=== PATIENT | male | born 1945 | race Caucasian/White ===

== ENCOUNTER → 2020-08-22 | Outpatient (CLI) | payer MEDICARE | END | disposition home or self-care (01) | LOC: STAR 11:35 | PROVIDERS: ATTEND Internal Medicine Clinical Cardiac Electrophysiology | DX: Z20.828 Contact with and (suspected) exposure to other viral communicable diseases (principal) | CPT/HCPCS: 87635 ==

== ENCOUNTER 2020-08-27 10:57 | Observation (INO) | payer MEDICARE ==
[~2020-08-27] VITALS: Ht 177.8 cm; Wt 124.9 kg
[2020-08-27] MEDS ORDERED: CEFAZOLIN PMX 2GM/50ML 50 ML IVPB ONE (12:00)
[2020-08-27] MEDS ORDERED: SPIR25TA5 PO (12:10)
[2020-08-27] MEDS ORDERED: LISI40TA PO (12:10)
[2020-08-27] MEDS ORDERED: ATOR40TA78 PO (12:10)
[2020-08-27] MEDS ORDERED: CLOP75TA52 PO (12:10)
[2020-08-27] MEDS ORDERED: AMLO-150 PO (12:10)
[2020-08-27] MEDS ORDERED: CARV25TA12 PO (12:10)
[2020-08-27] MEDS ORDERED: FURO40TA6 PO (12:10)
[2020-08-27] MEDS ORDERED: FURO20TA3 PO (12:10)
[2020-08-27] MEDS ORDERED: ASPI81TA45 PO (12:10)
[2020-08-27 12:12] VITALS: BP 139/81
[2020-08-27 12:19] LABS: BASOPHILS % (AUTO) 1 % (0-1); EOSINOPHILS % (AUTO) 3 % (1-7); LYMPHOCYTES % (AUTO) 14 % (22-44); MEAN CORPUSCULAR HEMOGLOBIN 31.4 pg (27.5-34.5); MEAN CORPUSCULAR HGB CONC 34.4 g/dL (33.2-36.2); MEAN PLATELET VOLUME 6.3 fL (7.4-10.4); MONOCYTES % (AUTO) 7 % (2-9); NEUTROPHILS % (AUTO) 76 % (42-75); PLATELET COUNT 297 x10^3/uL (130-400); RED BLOOD COUNT 5.03 x10^6/uL (4.38-5.82)
[2020-08-27 12:20] LABS: MD NO
[2020-08-27 12:27] LABS: INTERNATIONAL NORMALIZED RATIO 1.04 (0.93-1.1)
[2020-08-27 12:30] LABS: ANION GAP 8 mmol/L (5-15); CALCIUM 9.6 mg/dL (8.5-10.1); CHLORIDE 98 mmol/L (98-107); CREATININE 0.74 mg/dL (0.7-1.3)
[2020-08-27] MEDS ORDERED: FENTANYL PF 250 MCG/5ML ONE (12:57)
[2020-08-27] MEDS ORDERED: MIDAZOLAM 1 MG/ML, 5ML ONE (13:16)
[2020-08-27] MEDS ORDERED: LIDOCAINE 2%, 20ML ONE (13:17)
[2020-08-27] MEDS ORDERED: CEFAZOLIN PMX 1GM/50ML 50 ML ONE (13:17)
[2020-08-27] MEDS ORDERED: CEFAZOLIN 1,000 MG ONE (13:17)
[2020-08-27] MEDS ORDERED: ONDANSETRON 2MG/ML, 2ML ONE (13:24)
[2020-08-27] MEDS ORDERED: SUCCINYLCHOLINE 20 MG/ML, 10ML ONE (13:24)
[2020-08-27] MEDS ORDERED: DEXAMETHASONE 4 MG/ML, 1ML ONE (13:24)
[2020-08-27] MEDS ORDERED: PROPOFOL 10 MG/ML, 20ML ONE (13:24)
[2020-08-27] MEDS ORDERED: ROCURONIUM 10 MG/ML,10ML ONE (13:24)
[2020-08-27] MEDS ORDERED: FENTANYL PF 100 MCG/2ML IV PRN (15:00)
[2020-08-27] MEDS ORDERED: PROMETHAZINE 12.5 MG SUPP PR PRN (15:00)
[2020-08-27] MEDS ORDERED: OXYcodone 5 MG/5 ML ORAL.SOL UDC PO PRN (15:00)
[2020-08-27] MEDS ORDERED: PROMETHAZINE 25 MG/ML, 1ML IVPush PRN (15:00)
[2020-08-27] MEDS ORDERED: HYDROmorphone 1 MG/ML, 1ML INJ IVPush PRN (15:00)
[2020-08-27] MEDS ORDERED: MIDAZOLAM 1 MG/ML, 2ML IV PRN (15:00)
[2020-08-27] MEDS ORDERED: DIAZEPAM 5 MG/ML, 2ML IVPush PRN (15:00)
[2020-08-27] MEDS ORDERED: DIPHENHYDRAMINE 50 MG/ML, 1ML IVPush PRN (15:00)
[2020-08-27] MEDS ORDERED: ACETAMINOPHEN 325 MG TABLET PO PRN ×2 (15:00)
[2020-08-27] MEDS ORDERED: LABETALOL 5MG/ML, 20ML IV PRN (15:00)
[2020-08-27] MEDS ORDERED: ONDANSETRON 2MG/ML, 2ML IVPush PRN (15:00)
[2020-08-27] MEDS ORDERED: HYDROcodone/APAP 5/325 TABLET PO PRN (15:00)
[2020-08-27] MEDS ORDERED: HOLD MEDICATION MC PRN (15:00)
[2020-08-27] MEDS ORDERED: ALBUTEROL SULFATE 2.5 MG/3 ML NPPB PRN (15:00)
[2020-08-27] MEDS ORDERED: hydrALAzine 20 MG/ML, 1ML IV PRN (15:00)
[2020-08-27] MEDS ORDERED: MEPERIDINE/PF 25MG/0.5ML IVPush PRN (15:00)
[2020-08-27] MEDS ORDERED: EPHEDRINE 50 MG/ML, 1ML IVPush PRN (15:00)
[2020-08-27] MEDS ORDERED: ACETAMINOPHEN 650 MG/20.3 ML UDC ONE (15:21)
[2020-08-27] MEDS: SODIUM CHLORIDE 0.9% 1,000 ML IV SCH ×2 (16:20→20:00)
[2020-08-27] MEDS: CARVEDILOL 25 MG TABLET PO SCH (17:48)
[2020-08-27] MEDS ORDERED: FUROSEMIDE 20 MG TABLET PO SCH (18:00)
[2020-08-27 19:41] VITALS: BP 123/76
[2020-08-27] MEDS: SODIUM CHLORIDE FLUSH 10ML SYR IVF SCH (20:54)
[2020-08-27] MEDS ORDERED: ATORVASTATIN 40 MG TABLET PO SCH (21:00)
[2020-08-28 01:46] VITALS: BP 114/59
[2020-08-28] MEDS: SODIUM CHLORIDE 0.9% 1,000 ML IV SCH (03:05)
[2020-08-28] MEDS ORDERED: ASPIRIN 81 MG TABLET EC PO SCH (06:00)
[2020-08-28] MEDS ORDERED: ACET325T26 PO (07:49)
[2020-08-28] MEDS ORDERED: AMLODIPINE 5 MG TABLET PO SCH (09:00)
[2020-08-28] MEDS ORDERED: FUROSEMIDE 40 MG TABLET PO SCH (09:00)
[2020-08-28] MEDS ORDERED: LISINOPRIL 40 MG TABLET PO SCH (09:00)
[2020-08-28] MEDS ORDERED: SPIRONOLACTONE 25 MG TABLET PO SCH (09:00)
[2020-08-28] MEDS: CARVEDILOL 25 MG TABLET PO SCH (09:13)
[2020-08-28] MEDS: SODIUM CHLORIDE FLUSH 10ML SYR IVF SCH (09:28)
== END 2020-08-28 10:20 | disposition home or self-care (01) ==
LOC: CACL 10:57 → ORIP 14:39 → CACL 14:39 → 5SO 16:10 → DCLOUNGE 08-28 10:07
PROVIDERS: ADMIT Internal Medicine Clinical Cardiac Electrophysiology; ATTEND Internal Medicine Clinical Cardiac Electrophysiology
DX: I25.9 Chronic ischemic heart disease, unspecified (principal); I11.0 Hypertensive heart disease with heart failure; I50.20 Unspecified systolic (congestive) heart failure; Z45.02 Encounter for adjustment and management of automatic implantable cardiac defibrillator; G47.33 Obstructive sleep apnea (adult) (pediatric); E11.9 Type 2 diabetes mellitus without complications; E66.9 Obesity, unspecified; E03.9 Hypothyroidism, unspecified; Z79.82 Long term (current) use of aspirin; Z79.899 Other long term (current) drug therapy
CPT/HCPCS: 33249; 36415; 71045; 71046; 80048; 85025; 85610; 93005; C1722; C1892; C1895; G0378; J0330; J0690; J1100; J2405; J2704; J3010; J3490; J2250